=== PATIENT | female | born 1965 | race Caucasian/White ===

== ENCOUNTER 2021-07-09 06:26 | Day surgery (SDC) | payer OTHER ==
[~2021-07-09 06:26] MED LIST: COZAAR50 MG PO; CYMBALTA60 MG PO
== END 2021-07-09 12:50 | disposition home or self-care (01) ==
LOC: CIR.AMB 06:26
PROVIDERS: ATTEND Obstetrics & Gynecology
DX: N95.0 Postmenopausal bleeding (principal); Z20.822 Contact with and (suspected) exposure to COVID-19